=== PATIENT | male | born 1955 | race Caucasian/White ===

== ENCOUNTER → 2024-06-05 08:58 | Outpatient (REF) | payer OTHER, SELFPAY ==
[2024-06-05 10:01] LABS: % Basophils 0.1 % (0-2); % Immature Granulocytes 0.4 % (0-0.5); % Lymphocytes 13.4 % (20.5-51.1); % Monocytes 2.9 % (1.7-9.3); % Neutrophils 83.2 % (42.2-75.2); Absolute Monocytes 0.2 10^3/uL (0.1-0.6); Absolute Neutrophils 6.3 10^3/uL (1.4-6.5); Hematocrit 47.2 % (39.0-52.0); Hemoglobin 16.4 g/dL (13.0-18.0); Mean Corp Hgb Conc. 34.7 g/dL (33.0-37.0); Mean Corpuscular Hgb 30.5 pg (27.0-31.0); Mean Corpuscular Volume 87.9 fL (80.0-94.0); Mean Platelet Volume 10.3 fL (7.4-10.4); Nucleated Red Blood Cells % 0 % (-); Platelet Count 211 10^3/uL (130-400); Red Blood Cell Count 5.37 10^6/uL (4.70-6.10); Red Cell Dist. Width 13.8 % (11.5-14.5); White Blood Cell Count 7.6 10^3/uL (4.8-10.8)
[2024-06-05 10:38] LABS: Blood Urea Nitrogen 19 mg/dl (9-20); Carbon Dioxide 23 mmol/L (22-30); Chloride 102 mmol/L (98-107); Glucose 111 mg/dl (70-99); Potassium 4.7 mmol/L (3.5-5.1); Sodium 142 mmol/L (135-145); eGFR > 60.00
== END ==
LOC: RCS 08:58
PROVIDERS: ATTENDING PHYSICIAN Orthopaedic Surgery; FAMILY PHYSICIAN Family Medicine
DX: Z01.818 Encounter for other preprocedural examination (principal)
CPT/HCPCS: 36415; 80048; 85025; 93005

== ENCOUNTER 2024-07-15 06:23 | Day surgery (SDC) | payer OTHER, SELFPAY ==
--- NOTE | 2024-07-07 11:38 | VNURNOTE ---
Patient is scheduled for an elective L AWA on 07/15/24- [facility] . Spoke with patient prior to surgery. Introduced role of [facility] liaison.
Patient reports that he lives in a multistory home with 6 steps to enter. Bedroom on second floor with 10-15 steps. does have a powderroom on first floor.
PCP is Freda Lowry
Discussed orthopedic program and post surgical plans.
Reviewed that he will have VN services initially and will then start outpatient PT TBD. Patient had questions about a script for out patient PT. Referred patient to orthopedic office. Lizett Wilkerson notified.
Patient is in agreement with plan and states that his fiance 'Bobbi' will be staying with him. Bobbi's friend Marco Antonio Hutchins will drive patient home at discharge.
Plan: [facility] to start services at OR from [facility]. Referral placed in [facility].
--- NOTE | 2024-07-14 15:09 | PTCARENOTE ---
Addendum entered by Melba Lainez RN 07/14/24 16:25:
Ruth in office made aware. She informed Dr. Cabello also. Physical therapy was made aware that pt is ill prepared also.
Addendum entered by Melba Lainez RN 07/14/24 16:19:
Pt also stated he is flying to [place] in 2 weeks and that he paid a lot of money for the tickets and is not cancelling. I informed him he needed to talk to the surgeon about this. That he should call the office now if he needs to know the
answer before surgery.
Original Note:
Pt strongly encouraged to watch instructional hip video, since he hasn't viewed yet and was not aware of hip precautions or equipment needs at home. He does have a walker, but has not purchased an elevated toilet seat, he states he will work on
that now. He does not have outpt PT scheduled. He is aware appt needs to be made for 07/19/24 and he will call to set up appt today. Will make office aware.
[2024-07-15] VITALS (12 sets, daily range): BP systolic 124–164; BP diastolic 82–99; BMI 31.0
[2024-07-15] MEDS: CELEBREX 200 MG PO (11:44)
[2024-07-15] MEDS: TYLENOL 650 MG PO (11:45)
[2024-07-15 14:02] LABS: Glycohemoglobin (HgbA1c) 5.6 % (4.0-5.6)
[2024-07-15] MEDS: ANCEF 5 IV (16:43)
--- NOTE | 2024-07-15 17:12 | OR.RPT ---
Operative Report
Operative Report
Orthopaedic Surgery Operative Note
DATE OF OPERATION: 07/15/2024
PREOPERATIVE DIAGNOSES: Osteoarthritis, left hip
POSTOPERATIVE DIAGNOSES: Same
OPERATION PERFORMED: Left total hip arthroplasty.
SURGEON: Isai Cabello MD
SOFT MUD MOLDER: Preston BECERRA who helped with patient and limb positioning and retraction
ANESTHESIA: Spinal
COMPLICATIONS: None.
ESTIMATED BLOOD LOSS: 50 mL.
DRAINS: None
SPECIMEN: None
FINDINGS: Advanced articular cartilage wear on the femoral head and acetabulum.
IMPLANTS:
Nelly Trilogy Acetabular Shell, cluster hole, size 62
Nelly Trilogy Highly Crosslinked PE Liner, neutral
Nelly M/L Taper femoral stem, size 15 with standard neck length and standard offset
Biolox Ceramic Head, size 40mm +0
INDICATIONS: The patient presented to my office with debilitating left hip pain due to osteoarthritis. We reviewed the natural history of this problem, as well as the risks, benefits, and alternatives of various treatment options. The patient
exhausted all nonoperative treatment options and wished to proceed with hip replacement surgery. The patient understood the risks which included, but were not limited to, bleeding, infection, failure to relieve pain, more pain than preop, damage to
blood vessels and nerves, need for reoperation, mechanical failure of the implants, wound healing problems, stiffness, instability, blood clot, pulmonary embolism, myocardial infarction, pneumonia, arrhythmia, CVA, and . The patient accepted
these risks and wished to proceed. All questions were answered, and informed consent was obtained.
PROCEDURE IN DETAIL: The patient was identified in the preoperative holding area. The left hip was identified as the operative site. The patient was taken in the operating room and transferred to the operative table. Spinal/General anesthesia
was performed. IV antibiotics and tranexamic acid were administered. The patient was placed in the lateral position with Stulberg hip positioners. Axillary roll was placed. The down leg was well padded. All bony prominences were well padded. The
operative limb was prepped and draped in the usual sterile fashion.
Time out was performed. A posterolateral approach to the hip was used. The skin incision was centered over the greater trochanter. This was taken down sharply through subcutaneous tissues. Meticulous hemostasis was achieved throughout the case with
electrocautery. We split the fascia prakash in line with skin incision. I split the gluteus malik bluntly. We cauterized all crossing vessels as we split it. I palpated the sciatic nerve and made sure it was well posterior in the operative field. It
was protected throughout the case.
I performed a partial bursectomy to identify the short external rotators. The gluteus medius and minimus were identified and retracted anteriorly. I incised the piriformis tendon and conjoint tendon at their insertions. These were tagged for later
repair. I then performed a trapezoidal capsulotomy. The edges were tagged for later repair. I referenced the cut edge of the capsular flap to 2 fixed points on the greater trochanter for assistance with recreation of limb length and offset. I then
dislocated the hip posteriorly. I performed a femoral neck osteotomy approximately 10 mm above the lesser trochanter, as per preoperative templating. The femoral head measured 57 mm in outer diameter. The distance between the neck cut and center of
the femoral head was measured to be 40mm. I placed a curve hohmann retractor over the anterior lip of the acetabulum between the labrum and the anterior hip capsule. A second retractor was placed inferiorly just distal to the transverse acetabular
ligament. Circumferential view of the acetabulum was achieved. Extensive periacetabular osteophytes were removed. I incised the labrum and pulvinar with electrocautery. I started with a 57 mm reamer and reamed down to the medial wall. I then
sequentially reamed up to a 61mm reamer. This gave a nice bed of bleeding bone with excellent column support anteriorly and posteriorly. I impacted the acetabular shell in approximately 40 degrees of abduction and 20 degrees of anteversion. I
matched the anteversion of the transverse acetabular ligament. I also made sure that the anterior rim of the socket was not proud of the anterior wall to minimize the chance of iliopsoas tendinitis. I confirmed the cup was well-seated. I then
impacted a neutral liner and confirmed it was well seated with the locking mechanism.
On the femoral side, I use a box osteotome to open the proximal starting point. I found the canal with a Charnley awl and a lateralizing reamer. I then used the Nelly M/L taper broaches sequentially to prepare the femoral canal. The size 15 came to
a stop at the desired level and had excellent axial and rotational stability. We trialed with a trial ball head. The hip was taken through a complete range of motion. It was noted to be stable in extension without impingement. It was stable in the
position of sleep and in flexion with internal rotation. The limb length and offset were checked compared to the capsular flap and was appropriate. The measured length between the lesser trochanter and center of the femoral head was 42.5mm.
I removed the trials. I impacted the femoral implant to match the [place] version. It had excellent axial and rotational stability. Trial ball head was placed, and I reduced the hip and took the hip through a complete range of motion. There was no
impingement in external rotation and extension. Position of sleep was stable. At 90 degrees of flexion and slight adduction, the hip could be internally rotated to 90 degrees with no subluxation. I palpated the sciatic nerve, which was tension free
and unharmed. Based on our capsular flap measurement, we had restored the offset and leg length. The trial ball head was removed, and the final ball head was impacted onto a clean and dry Haynes taper. The hip was reduced.
A dilute betadine soak was performed for approximately 3 minutes, and then the hip was copiously irrigated. I repaired the capsule, piriformis, and conjoint tendon with #2 Ethibond to drill holes in the greater trochanter. Local anesthetic was
injected. The fascia prakash was closed with #1 PDS in running fashion. The subcutaneous tissues were closed with 2-0 PDS in running fashion. The skin was reapproximated with 3-0 Monocryl subcuticular suture. I placed a Prineo dressing followed by a
Mepilex Ag dressing. The patient awoke from anesthesia without difficulty. Sponge and instrument counts were correct x2 at the end of the case.
I was present and participated in the entire procedure. I checked leg length at the ankles after transfer on the bed which was equal. The patient was sent to the recovery room in stable condition.
Rigoberto Cabello MD
== END 2024-07-15 18:45 | disposition home health service (06) ==
LOC: SDS 06:23
PROVIDERS: ATTENDING PHYSICIAN Orthopaedic Surgery; FAMILY PHYSICIAN Family Medicine
DX: M16.12 Unilateral primary osteoarthritis, left hip (principal)
CPT/HCPCS: 27130; 73502; 83036; 87070; 97162; C1776